=== PATIENT | female | born 1970 | race Caucasian/White ===

== ENCOUNTER → 2021-03-17 10:48 | Outpatient (CLI) | payer BC, SELFPAY ==
--- NOTE | ~2021-03-17 | MM_ITS ---
EXAMINATION: MM screening nicko BI w nicolas HISTORY: Screening mammogram TECHNIQUE: Craniocaudal and mediolateral oblique 3-D tomosynthesis images were obtained and synthetic 2-D images were generated. CAD analysis was submitted and interpreted. COMPARISON: 09/04/2019, 02/07/2018, 11/23/2016 bilateral digital screening mammogram examinations BREAST PARENCHYMAL COMPOSITION: There are scattered areas of fibroglandular density. FINDINGS: There is no evidence of suspicious mass, calcification, or architectural distortion to sugg est malignancy in either breast. There has been no suspicious interval change. IMPRESSION: 1. No mammographic evidence of malignancy. 2. Recommend routine screening mammography in one year. BI-RADS Category 1: Negative Reviewed, dictated and finalized at location A.
== END ==
PROVIDERS: PCP Physician Assistant; Visit Provider Physician Assistant
DX: Z12.31 Encounter for screening mammogram for malignant neoplasm of breast (principal)
CPT/HCPCS: 77063; 77067

== ENCOUNTER 2021-12-21 01:15 | Day surgery (SDC) | payer BC, SELFPAY ==
[2021-12-10 15:45] VITALS: BMI 29.3
[2021-12-21 08:53] VITALS: BP 136/90; PULSE 61; RESP 20; TEMP 36.5; O2SAT 100; BMI 31.2
[2021-12-21] MEDS: LACTATED RINGERS 1,000 ML 150 ML IV CONT (09:07)
--- NOTE | 2021-12-21 09:10 | WPDANESEPPF ---
Anes - Initial Pre Proc Eval Procedure: Operation Date: 12/21/21 09:30 Proposed Procedures p Esophagogastroduodenoscopy & Screening Colonoscopy - Mulugeta Rodriguez MD Date/Time: 12/21/21 09:10 Surgeon: Mulugeta Rodriguez MD Pre Op Diagnosis: GERD, neoplasm screening Patient Data Age: 51 Gender: F Height: 1.65 m Weight: 85.2 kg Last Vital Signs Temp 36.5 C 12/21/21 08:53 Pulse 61 12/21/21 08:53 Resp 20 12/21/21 08:53 BP 136/90 12/21/21 08:53 Pulse Ox 100 12/21/21 08:53 Allergies Allergy/AdvReac Type Severity Reaction Status Date / Time No Known Allergies Allergy Verified 12/21/21 08:52 Home Medications Medication Instructions Recorded Confirmed Type Pepcid 20 mg PO DAILY 12/10/21 12/10/21 History alprazolam 0.25 mg PO PRN 12/10/21 12/10/21 History levothyroxine [Synthroid] 50 mcg PO DAILY 12/10/21 12/10/21 History trazodone 100 mg PO HS 12/10/21 12/10/21 History Patient hx anesthesia problems: none Family hx anesthesia problems: none Results Review: All pre-operative results and documents have been reviewed as part of the pre-operative evaluation. [facility] Past Medical History Medical History (Updated 12/21/21 @ 09:10 by Eliseo Portillo MD) Anxiety GERD (gastroesophageal reflux disease) Hypothyroidism Obesity Surgical History Surgical History (Updated 12/21/21 @ 09:13 by Eliseo Portillo MD) H/O: hysterectomy History of shoulder surgery Social History Social History Smoking status: Never smoker Alcohol intake: never Substance use: never Substance use type: does not use Living arrangements: with family Spiritual care concerns: No Anes - Eval Final PreProcedure Day of Procedure 12/21/21 09:10 Patient weight: obese Heart: regular rate and rhythm Lungs: clear to auscultation Airway: Mallampati scale class II Neurological: alert and oriented Last oral intake: >/= 8 hours ASA classification: III Emergent: no Anesthetic plan: proceed Anesthesia type and monitoring: general GIVS and standard monitoring Results Review: All pre-operative results and documents have been reviewed as part of the pre-operative evaluation. Informed Consent: The patient's anesthetic plan and its attendant risks and benefits were discussed with the patient/family/POA. Questions were solicited and answers provided to the satisfaction of the patient/family/POA.
[2021-12-21 09:49] VITALS: BP 102/51; PULSE 67; RESP 18; O2SAT 100
[2021-12-21 09:59] VITALS: BP 107/69; PULSE 57; RESP 20; O2SAT 99
[2021-12-21 10:09] VITALS: BP 125/72; PULSE 55; RESP 17; O2SAT 100
--- NOTE | 2021-12-24 14:20 | PM.HPGS ---
History of Present Illness History of Present Illness Consent: Risks, benefits, and alternatives have been discussed and questions answered. Patient agrees to proceed with procedure. Chief complaint: GERD, neoplasm screening Narrative: Merry Dalal is a 51 year old female referred for investigation of chronic gastroesophageal reflux disease for which she uses Pepcid. She is also due for colon cancer screening. Review of Systems Review of Systems: All systems reviewed & are unremarkable except as noted in HPI and below PMFSH Past Medical History Medical History Anxiety GERD (gastroesophageal reflux disease) Hypothyroidism Obesity Surgical History Surgical History H/O: hysterectomy History of shoulder surgery Social History Social History Smoking status: Never smoker Alcohol intake: never Substance use: never Substance use type: does not use Living arrangements: with family Spiritual care concerns: No Meds Home Medications and Allergies Home Medications Medication Instructions Recorded Confirmed Type Pepcid 20 mg PO DAILY 12/10/21 12/10/21 History alprazolam 0.25 mg PO PRN 12/10/21 12/10/21 History levothyroxine [Synthroid] 50 mcg PO DAILY 12/10/21 12/10/21 History trazodone 100 mg PO HS 12/10/21 12/10/21 History Allergies Allergy/AdvReac Type Severity Reaction Status Date / Time No Known Allergies Allergy Verified 12/21/21 08:52 Exam Const: General: alert Orientation/consciousness: patient oriented x3 Resp: Auscultation: clear to auscultation bilaterally Cardio: Rhythm: regular rhythm GI: GI Palp: Yes Soft to palpation and No Tenderness to palpation present (GI) Neuro: General: patient oriented x3 Assessment and Plan Assessment and plan (1) GERD (gastroesophageal reflux disease): Code(s): K21.9 - Gastro-esophageal reflux disease without esophagitis Status: Acute Assessment and Plan: EGD with possible biopsy or dilatation or cautery. (2) Colon cancer screening: Code(s): Z12.11 - Encounter for screening for malignant neoplasm of colon Status: Acute Assessment and Plan: Colonoscopy with possible biopsy or polypectomy or cautery or injection of substances.
== END 2021-12-21 10:21 | disposition home or self-care (01) ==
PROVIDERS: PCP Physician Assistant; Visit Provider Internal Medicine Gastroenterology
PROC: 0DJ08ZZ Inspection of Upper Intestinal Tract, Via Natural or Artificial Opening Endoscopic (ICD-10-PCS; CPT 43235; principal; 2021-12-21 09:30)
DX: Z12.11 Encounter for screening for malignant neoplasm of colon (principal); K64.8 Other hemorrhoids; D12.4 Benign neoplasm of descending colon; K21.9 Gastro-esophageal reflux disease without esophagitis; E03.9 Hypothyroidism, unspecified; F41.9 Anxiety disorder, unspecified; E66.9 Obesity, unspecified; Z68.31 Body mass index [BMI] 31.0-31.9, adult
CPT/HCPCS: 45380; 43239; 87081; 88305; J2704; J7120

== ENCOUNTER 2022-03-06 18:26 | Emergency (ER) | payer BC, SELFPAY ==
--- NOTE | 2022-03-06 18:27 | ED.CHESTPAIN ---
HPI - Chest Pain General Chief Complaint: Chest Pain Stated Complaint: RIB PAIN Time Seen by Provider: 03/06/22 18:27 Source: patient Mode of arrival: ambulatory Limitations: no limitations History of Present Illness HPI narrative: Ms. Bentley is a 51-year-old female patient presenting to the clinic today with complaints of rib pain x 2 days. She reports no known injury. Has pain to the right lateral ribs with movement and when laying on that side. She denies a cough. Is painful at times with taking a deep breath but more with movement. Related Data Home Medications Medication Instructions Recorded Confirmed alprazolam 0.25 mg tablet 0.25 mg PO PRN 12/10/21 03/06/22 levothyroxine 50 mcg tablet 50 mcg PO DAILY 12/10/21 03/06/22 (Synthroid) trazodone 100 mg tablet 100 mg PO HS 12/10/21 03/06/22 omeprazole 20 mg capsule,delayed 20 mg PO DAILY 03/06/22 03/06/22 release Allergies Allergy/AdvReac Type Severity Reaction Status Date / Time No Known Allergies Allergy Verified 03/06/22 18:34 Review of Systems Review of Systems: Pertinent positives per HPI. Patient denies any fever, chills, rash, headache, visual changes, dizziness, cough, runny nose, sore throat, shortness of breath, chest pain, palpitations, nausea, vomiting, diarrhea, constipation, abdominal pain, or any urinary issues. PMFSH Past Medical History Medical History Anxiety GERD (gastroesophageal reflux disease) Hypothyroidism Obesity Surgical History Surgical History H/O: hysterectomy History of shoulder surgery Social History Social History Smoking status: Never smoker Alcohol intake: never Substance use: never Substance use type: does not use Spiritual care concerns: No Comments At the time of my signature, I reviewed and agree with the nursing past medical, surgical, social, and family history. There is no relevant family history pertinent to the patient complaint. Exam Narrative: General: Well-developed, well nourished, in no apparent distress Head: Normocephalic, atraumatic Eyes: Pupils equally round and reactive to light bilaterally, EOM intact, sclera and conjunctive clear, no discharge, lids normal Ears: TMs intact and clear, ear canals clear, no drainage, grossly hearing normal. Nose: Nares patent, no discharge, no inflammation, no sinus tenderness. Mouth: Oropharynx without lesions or masses, good dentition, MMM. Neck: Supple, trachea midline, no enlargement of anterior or posterior cervical nodes, no thyroid masses or goiter palpable. Cardio: Regular rate and rhythm, s1 and s2 normal, no murmur appreciated. Chest: Symmetric rise and fall with inspiration/expiration, tenderness to palpation over the right lateral rib, no deformity palpable. Resp: Clear to auscultation bilaterally anteriorly and posteriorly, no rhonchi, rales, wheezing or rubs Course Course Emergency Course: Portions of this record may have been created with voice recognition software. Level of Care: Express Care Visit Vital Signs Vital signs: Vital signs reviewed MDM - Chest Pain MDM Narrative Medical decision making narrative: At the time of visit patient is resting comfortably on the exam table. I suspect the patient has chest wall pain. Prednisone was sent to her pharmacy and she voiced understanding of discharge instructions and agrees to treatment plan. Differential Diagnosis Differential diagnosis: Likely fracture of rib, pneumothorax, stable angina, atypical chest pain, costochondritis and chest pain Discharge Plan Discharge Clinical Impression: Chest wall pain Patient Disposition: Home, Self-Care Condition: Stable Instructions: Chest Wall Pain (ED) Additional Instructions: Rest Apply ice to the affected area Prednisone as
[2022-03-06 18:35] VITALS: BP 115/91; PULSE 87; RESP 16; TEMP 37.1; O2SAT 100
[2022-03-06 18:37] VITALS: BP 115/91; PULSE 87; RESP 16; TEMP 37.1; O2SAT 100
== END 2022-03-06 18:48 | disposition home or self-care (01) ==
PROVIDERS: Emergency Provider Nurse Practitioner Family; PCP Physician Assistant
DX: R07.89 Other chest pain (principal); K21.9 Gastro-esophageal reflux disease without esophagitis; E03.9 Hypothyroidism, unspecified; E66.9 Obesity, unspecified; Z68.29 Body mass index [BMI] 29.0-29.9, adult; F41.9 Anxiety disorder, unspecified
CPT/HCPCS: 99213; G0463

== ENCOUNTER → 2022-05-03 15:18 | Outpatient (CLI) | payer BC, SELFPAY ==
--- NOTE | ~2022-05-03 | MM_ITS ---
EXAMINATION: MM screening nicko BI w nicolas HISTORY: Screening mammogram TECHNIQUE: Craniocaudal and mediolateral oblique 3-D tomosynthesis images were obtained and synthetic 2-D images were generated. CAD analysis was submitted and interpreted. COMPARISON: No prior mammogram is available for comparison at this institution. BREAST PARENCHYMAL COMPOSITION: There are scattered areas of fibroglandular density. FINDINGS: There is no evidence of suspicious mass, calcification, or architectural distortion to sugg est malignancy in either breast. There has been no suspicious interval change. IMPRESSION: 1. No mammographic evidence of malignancy. 2. Recommend routine screening mammography in one year. BI-RADS Category 1: Negative Reviewed, dictated and finalized at location A.
== END ==
PROVIDERS: PCP Physician Assistant; Visit Provider Physician Assistant
DX: Z12.31 Encounter for screening mammogram for malignant neoplasm of breast (principal)
CPT/HCPCS: 77063; 77067